=== PATIENT | female | born 1980 | race Caucasian/White ===

== ENCOUNTER 2016-05-23 11:11 | Emergency (ER) | payer MEDICAID ==
[~2016-05-23] VITALS: Ht 160 cm; Wt 54.0 kg
[2016-05-23 11:23] VITALS: BP 111/55
--- NOTE | 2016-05-23 12:59 | NUR ---
Patient to bed 07.
--- NOTE | 2016-05-23 13:00 | NUR ---
36/F BIB SELF C/O COUGH,RUNNY NODE X 3 DAYS. PT DENIES N/V/D; SKIN IS PINK/WARM/DRY; AAOX4 WITH EVEN AND STEADY GAIT; LUNGS CLEAR BL; HR EVEN AND REGULAR; PT DENIES ANY FEVER OR CHEST PAIN AT THIS TIME; PATIENT STATES PAIN OF 0/10 AT THIS TIME; VSS; PATIENT POSITIONED FOR COMFORT; HOB ELEVATED; BEDRAILS UP X2; BED DOWN. ER MD MADE AWARE OF PT STATUS.
--- NOTE | 2016-05-23 13:18 | NUR ---
Dr. Badillo evaluating patient at bedside.
[2016-05-23] MEDS ORDERED: NACL 0.9% 1,000 ML IV SCH (13:33)
[2016-05-23] MEDS ORDERED: ACETAMINOPHEN EXTRA STRENGTH 500 MG TAB PO ONE (15:00)
[2016-05-23] MEDS ORDERED: cefTRIAXone 1,000 MG VIAL ONE (16:31)
[2016-05-23 17:10] VITALS: BP 111/62
--- NOTE | 2016-05-23 17:10 | NUR ---
IV removed, catheter intact and site benign. Applied folded 4x4 gauze and tape to stop bleeding.
--- NOTE | 2016-05-23 17:12 | NUR ---
Patient discharged with v/s stable. Written and verbal after care instructions given and explained. Patient alert, oriented and verbalized understanding of instructions. Ambulatory with steady gait. All questions addressed prior to discharge. ID band removed. Patient advised to follow up with PMD. Rx of BACTRIM & TYLENOL WITH CODEINE given. Patient educated on indication of medication including possible reaction and side effects. Opportunity to ask questions provided and answered.
== END 2016-05-23 17:12 | disposition home or self-care (01) ==
LOC: MED 11:11
DX: B34.9 Viral infection, unspecified (principal); J40 Bronchitis, not specified as acute or chronic; N39.0 Urinary tract infection, site not specified
CPT/HCPCS: 36415; 80053; 81001; 81025; 82150; 83690; 85025; 87040; 87086; 96361; 96365; 99284; J0696; J7030; J7060